=== PATIENT | female | born 1990 | race African-American/Black ===

== ENCOUNTER 2020-04-19 15:09 | Emergency (ER) | payer OTHER ==
[~2020-04-19] VITALS: Ht 160 cm; Wt 64.4 kg
[2020-04-19 15:17] VITALS: BP 103/65
[2020-04-19] MEDS: IBUPROFEN 600 MG TAB PO ONE ×2 (15:39→15:42)
[2020-04-19] MEDS ORDERED: ACETAMINOPHEN 325 MG TAB PO ONE (15:45)
[2020-04-19 16:15] VITALS: BP 103/65
== END 2020-04-19 16:15 | disposition home or self-care (01) ==
LOC: MED 15:09
DX: M25.552 Pain in left hip (principal); Z90.49 Acquired absence of other specified parts of digestive tract
CPT/HCPCS: 81002; 81025; 99282